=== PATIENT | male | born 1995 | race African-American/Black ===

== ENCOUNTER 2017-01-07 20:46 | Emergency (ER) | payer OTHER ==
[~2017-01-07] VITALS: Ht 182.9 cm; Wt 89.3 kg
[2017-01-07] MEDS ORDERED: PREDNISONE20 MG PO (22:27)
[2017-01-07] MEDS ORDERED: VENTOLIN HFA18 GM IH (22:31)
[2017-01-07] MEDS ORDERED: ADVAIR 250/501 DISK IH (22:31)
[2017-01-07] MEDS ORDERED: SYMBICORT60 INHALAT IH (22:35)
[2017-01-07 22:39] VITALS: BP 153/83
== END 2017-01-07 22:40 | disposition home or self-care (01) ==
LOC: EME 20:46
DX: J45.909 Unspecified asthma, uncomplicated (principal); J06.9 Acute upper respiratory infection, unspecified; Z91.010 Allergy to peanuts
CPT/HCPCS: 71020; 94640; 99281; 99284; J7512

== ENCOUNTER 2017-12-09 19:30 | Emergency (ER) | payer OTHER ==
[~2017-12-09] VITALS: Ht 182.9 cm; Wt 84.9 kg
[~2017-12-09 19:30] MED LIST: ADVAIR 250/501 DISK IH; PREDNISONE20 MG PO; SYMBICORT60 INHALAT IH; VENTOLIN HFA18 GM IH
[2017-12-09 20:11] LABS: HEMOGLOBIN 15.5 G/DL (12.5-16.6); MCH 26.9 PG (29.0-34.0); MCHC 34.4 G/DL (30.0-36.0); PLATELET COUNT 213 K/uL (156-360); RBC DIS.WIDTH-CV 15.2 % (11.8-14.6); RBC DIS.WIDTH-SD 42.4 % (39-53); RED BLOOD COUNT 5.77 M/uL (4.00-5.50); WHITE BLOOD COUNT 7.6 K/uL (4.1-10.2)
[2017-12-09 20:18] LABS: CHLORIDE 101 mEq/L (99-109); POTASSIUM 4.1 mEq/L (3.7-5.4); SODIUM 137 mEq/L (136-147)
[2017-12-09 20:20] LABS: GLUCOSE 103 mg/dL (70-99)
[2017-12-09 20:24] LABS: CREATININE 0.9 mg/dL (0.6-1.3); GFR ESTIMATE (CALCULATED) > 59 mL/min/ (58.99-99999)
[2017-12-09 20:25] LABS: UREA NITROGEN (BUN) 14 mg/dL (9-23)
[2017-12-10] MEDS ORDERED: PEPCID20 MG PO (00:34)
[2017-12-10] MEDS ORDERED: PHENERGAN1.25 MG/ML PO (00:34)
[2017-12-10] MEDS ORDERED: DELTASONE20 M1 PO (00:34)
[2017-12-10] MEDS ORDERED: ZITHROMAX Z-PA250 MG PO (00:34)
[2017-12-10 01:06] VITALS: BP 130/83
== END 2017-12-10 01:14 | disposition home or self-care (01) ==
LOC: EME 19:30
DX: J45.909 Unspecified asthma, uncomplicated (principal); R06.02 Shortness of breath; R05 Cough; F17.200 Nicotine dependence, unspecified, uncomplicated
CPT/HCPCS: 71046; 80048; 85027; 94640; 99281; 99284; J7512